=== PATIENT | female | born 1990 | race Caucasian/White ===

== ENCOUNTER 2018-08-23 16:11 | Emergency (ER) | payer OTHER ==
[2018-08-23] MEDS ORDERED: Sodium Chloride 0.9% 1,000 ML IV ONE ×2 (17:30→18:40)
--- NOTE | 2018-08-23 17:50 | RAD ---
HISTORY: SOB COMPARISON: None available. TECHNIQUE: Chest PA and lateral, 2 views FINDINGS: Patient is slightly rotated. LUNGS: Left hilar prominence suspected secondary to vasculature exaggerated by patient obliquity. No focal consolidation. Please note that chest x-ray has limited sensitivity for the detection of pulmonary masses. PLEURA: No significant pleural effusion identified. No definite pneumothorax . CARDIOVASCULAR: Heart size appears within normal limits. No atherosclerotic calcification present. OSSEOUS STRUCTURES: No acute osseous abnormality identified. VISUALIZED UPPER ABDOMEN: Unremarkable. OTHER FINDINGS: None. IMPRESSION: No focal consolidation. Left hilar prominence suspected vasculature exaggerated by patient obliquity.
[2018-08-23 18:07] LABS: BASO # 0.1 K/uL (0.0-0.2); BASO % 0.5 % (0.0-2.0); EOS % 0.1 % (0.0-4.0); HEMOGLOBIN 13.7 g/dL (11.0-16.0); LYMPH # 0.6 K/uL (1.0-4.3); MEAN CELL VOLUME 92.9 fL (81.0-99.0); MEAN CORPUSCULAR HEMOGLOBIN 30.5 pg (27.0-31.0); MEAN CORPUSCULAR HGB CONC 32.8 g/dL (33.0-37.0); MEAN PLATELET VOLUME 7.4 fL (7.2-11.7); MONO # 0.7 K/uL (0.0-0.8); MONO % 7.6 % (0.0-10.0); NEUT % 85.8 % (50.0-75.0); PLATELET COUNT 263 K/uL (130-400); RBC 4.48 Mil/uL (3.80-5.20); RED CELL DISTRIBUTION WIDTH 12.9 % (11.5-14.5); WHITE BLOOD COUNT 9.3 K/uL (4.8-10.8)
[2018-08-23] MEDS ORDERED: Sodium Chloride 0.9% 1,000 ML ONE (18:07)
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
[2018-08-23 18:25] LABS: ALB/GLOB RATIO 1.3 (1.0-2.1); ALBUMIN 4.6 g/dL (3.5-5.0); ALT/SGPT 31 U/L (9-52); AST/SGOT 50 U/L (14-36); BLOOD UREA NITROGEN 7 mg/dL (7-17); CALCIUM 8.9 mg/dl (8.6-10.4); GFR NON-AFRICAN AMERICAN > 60
[2018-08-23 18:35] LABS: SQUAMOUS EPITHIAL 1 /hpf (0-5); URINE BACTERIA MOD (<OCC); URINE BILIRUBIN NEGATIVE (NEGATIVE); URINE BLOOD 2+ (NEGATIVE); URINE CLARITY Hazy (Clear); URINE COLOR Yellow (YELLOW); URINE GLUCOSE (UA) NORMAL (Normal); URINE HYALINE CAST 0-2 /lpf (0-2); URINE LEUKOCYTE ESTERASE NEG Leu/uL (Negative); URINE PROTEIN NEGATIVE (NEGATIVE); URINE UROBILINOGEN NORMAL mg/dL (0.2-1.0)
[2018-08-23 18:58] VITALS: RESP 18; O2SAT 100
[2018-08-23 19:14] LABS: HCG,QUALITATIVE URINE NEGATIVE (NEGATIVE)
[2018-08-23 20:03] VITALS: BP 102/62; PULSE 89; TEMP 98.1
[2018-08-23 21:16] LABS: BANDS 9 % (0-2); LYMPHOCYTE 11 % (20-40); MONOCYTE 2 % (0-10); NEUTROPHIL 78 % (50-75); PLATELET ESTIMATE NORMAL (NORMAL); TOTAL CELLS COUNTED 100
[2018-08-23 22:00] LABS: INTRACELLULAR PARASITE NEGATIVE (NEGATIVE)
== END 2018-08-23 20:01 | disposition home or self-care (01) ==
LOC: C.ER 16:11
DX: J11.1 Influenza due to unidentified influenza virus with other respiratory manifestations (principal)
CPT/HCPCS: 71046; 80053; 81001; 83605; 84703; 85025; 87040; 87205; 87207; 87804; 96360; 99285; J7030

== ENCOUNTER 2018-08-25 13:20 | Emergency (ER) | payer OTHER ==
[2018-08-25 13:27] VITALS: BP 105/69; PULSE 94; TEMP 99.1; O2SAT 98
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
[2018-08-25 13:59] VITALS: RESP 18
== END 2018-08-25 13:59 | disposition home or self-care (01) ==
LOC: C.ER 13:20
DX: R89.9 Unspecified abnormal finding in specimens from other organs, systems and tissues (principal)